=== PATIENT | male | born 1965 | race Caucasian/White ===

== ENCOUNTER 2022-10-27 06:09 | Observation (INO) ==
--- NOTE | 2022-09-07 10:32 | PAT Medication Instructions ---
Medication Instructions Date of Service September 07, 2022 Home Medications esomeprazole magnesium 20 mg capsule,delayed release 20 mg PO QPM magnesium 1 tab PO HS multivitamin 1 tab PO QAM DO NOT take the morning of surgery multivitamin 1 tab PO QAM Take evening before surgery esomeprazole magnesium 20 mg capsule,delayed release 20 mg PO QPM magnesium 1 tab PO HS Other Notes If you have any questions please call us at [phone] or [phone] or [phone] or [phone]
--- NOTE | 2022-09-14 13:42 | Anesthesiology Consultation ---
Date of Service September 14, 2022 Assessment & Plan (1) Encounter for pre-operative examination: - COVID screening: Per assessment on 09/14: No known COVID-19 positive contacts or current COVID-19 related symptoms. Travel screen- travels back and forth to [place] for work. Patient vaccinated. At surgeon discretion if preop Covid testing being done. - ETOH use: Patient reports 4-5 beers/night. No morning ETOH use - PCP visit (09/13/22): Aware of upcoming cervical surgery. "Hypertension - New Dx (09/14/22)- Not at goal. Discussed with patient the causes, predisposing risks, types, symptoms, and treatment of hypertension. Start Losartan as prescribed. May need a second agent. Educated patient on the benefits of 40 min. of aerobic exercise 4-5 days per week, low fat diet, weight reduction. Continue other conservative measures in efforts to decrease blood pressures to include: Low- sodium diet, NSAID avoidance, etc.. Continue to follow labs. Notify office if BP routinely >140/90. Discussed red flags of different kinds of cardiovascular events. Call or return to the office as needed with new or worsening symptoms. Patient in agreement with above plan.. BP 162/92" > Pt scheduled for PCP f/u visit for HTN management. Awaiting PCP visit ([facility], appt 10/05). Chart Review Chart Review: Patient seen in Pre Admission Testing Teaching & Discussion Pre-Anesthesia Teaching/Discussion Notes: Instructed NPO after midnight before surgery,except medications with 15 cc of water. Medication instructions provided according to the PAT guidelines. History Surgery Operation Date: 10/27/22 07:45 Proposed Procedures p C5-C7 Anterior Cervical Discectomy and Fusion, Spinal Cord Monitoring - Henry Washington DO Height/Weight Height: 5 ft 8.5 in Weight: 80.2 kg Allergies Allergy/AdvReac Type Severity Reaction Status Date / Time No Known Allergies Allergy Verified 09/13/22 13:51 Medications Home Medications Medication Instructions Recorded Confirmed Last Taken esomeprazole magnesium 20 mg 20 mg PO QPM 09/07/22 09/13/22 Unknown capsule,delayed release magnesium 1 tab PO HS 09/07/22 09/13/22 Unknown multivitamin 1 tab PO QAM 09/07/22 09/13/22 Unknown losartan 50 mg tablet 50 mg PO DAILY #30 tabs 09/13/22 09/13/22 Unknown Past Medical History Medical History Cervical radiculopathy Cervical spinal stenosis Degeneration of intervertebral disc of cervical region GERD (gastroesophageal reflux disease) OTC Nexium History of COVID-19 12/2021 (home test)- sore throat, runny nose > resolved Hx of headache R/t neck issues per patient Hypertension Exercise / Class Metabolic Activity II 4-5 Yardwork/Stairs/Walk up hill (one FS (no CP, no SOB)) Past Family History Family History Other Hypertension Myocardial infarction Stroke Denies family history of Ovarian cancer Prostate cancer Breast cancer Colorectal cancer Past Surgical History Surgical History Hx of anterior cruciate ligament tear reconstruction LEFT KNEE X2 Hx of shoulder surgery RIGHT- BANKHARDT REPAIR Past Anesthesia History No Hx of Anesthesia Complications and No Family Hx of Anesthesia Complications History of PONV No Hx of PONV and No Hx of Motion Sickness Social History Smoking Status: Never smoker Do You Dip or Chew Tobacco: Yes (HX-QUIT OVER 20 YEARS AGO; ADVISED) Hx Alcohol Use: Yes Alcohol type: beer alcohol intake frequency: 3 or more drinks per day (4-5 beers/night (no morning ETOH use)) Hx Substance Use: No substance use type: does not use Review of Systems Patient denies chest pain, shortness of breath, dyspnea on exertion, fever, chills, cough, wheezing, palpitations. Physical Exam Vital Signs VITALS BP 175/88 > manual recheck 154/84 (per patient, BPs earlier today were 132/80s, 137/90, today was first day of starting losartan) P 67 TEMP 98.0 SP02 99%RA RESP 16 PHYSICAL Full cervical extension range of motion. Full TMJ range of motion. TMD 3 finger breaths Mallampati Score 1 Dentition: missing molar Lungs: clear throughout to auscultation Cardiac: regular rate and rhythm, no murmurs noted Spine: normal Carotid arteries: negative bruit Extremities: no LE edema Lab Results Anesthesia Preop Results Results Anesthesia Widget: WBC 7.92 K/ul (4.8-10.8) 09/14/22 Hgb 16.3 g/dl (14.0-18.0) 09/14/22 Hct 44.6 % (42.0-52.0) 09/14/22 Plt 214 K/uL (130-400) 09/14/22 Na 138 mmol/L (136-145) 09/14/22 K 4.2 mmol/L (3.5-5.1) 09/14/22 Cl 103 mmol/L (98-107) 09/14/22 CO2 29 mmol/L (21-32) 09/14/22 BUN 13 mg/dl (6-23) 09/14/22 Creat 0.96 mg/dl (0.6-1.4) 09/14/22 Glucose Level 98 mg/dl (70-99(Fasting)) 09/14/22 PT 11.9 Seconds (9.0-12.0) 09/14/22 PTT 28.5 Seconds (21.0-31.0) 09/14/22 INR 1.1 (0.9-1.1) 09/14/22 Urine Color Yellow 09/14/22 Urine Appearance Clear (Clear) 09/14/22 Urine pH 7.0 (4.5-7.5) 09/14/22 Urine Specific [place] 1.007 (1.000-1.030) 09/14/22 Urine Protein Negative (Negative) 09/14/22 Urine Glucose (UA) Negative (Negative) 09/14/22 Urine Ketones Negative (Negative) 09/14/22 Urine Blood Negative (Negative) 09/14/22 Urine Nitrite Negative (Negative) 09/14/22 Urine Bilirubin Negative (Negative) 09/14/22 Urine Urobilinogen Negative (Negative) 09/14/22 Urine Leukocyte Esterase Negative (Negative) 09/14/22 Blood Type B Positive 09/14/22 Antibody Screen NEGATIVE 09/14/22 Testing Electrocardiogram Date: 09/14/22 NSR at 71bpm. Chest X-Ray Date: 09/14/22 FINDINGS: PA and lateral chest radiographs are obtained. No prior studies are available for comparison at the time of dictation. The cardiomediastinal silhouette is unremarkable. The lungs and pleural spaces are clear. There is no pneumothorax. The bony thorax appears intact. Degenerative change is noted in the thoracic spine. Cholecystectomy clips are present in the upper abdomen. IMPRESSION: No active disease in the chest. COVID-19 Risk Screen Screening Information COVID-19 Screen Date: 09/14/22 Exposure 21 Days Family/Household +COVID Last 21 Days: No Exposure 10 Days Any COVID Exposure Last 10 Days: No Symptoms Last 10 Days Experienced COVID Sx Last 10 Days: No + COVID 0-90 Days COVID + in Last 0-90 Days: No
[~2022-10-27 06:09] MED LIST: ACETAMINOPHEN 500 MG TAB PO SCH; CeleBREX 200 MG CAP PO SCH; GABAPENTIN 300 MG CAP PO SCH; LR 15ML/HR IV SCH; ceFAZolin 2000MG 2,000 MG/15 ML SYR IV SCH
[2022-10-27] MEDS ORDERED: FAMOTIDINE/PF 20 MG/2 ML VIAL IV ONE (06:47)
[2022-10-27] MEDS ORDERED: MIDAZOLAM HCL 1 MG/ML 2ML VIAL ONE (06:55)
[2022-10-27] MEDS ORDERED: fentaNYL citrate PF 100 MCG/2 ML VIAL ONE (06:55)
[2022-10-27] MEDS ORDERED: LIDOCAINE 2% 2 ML VIAL/AMP(20MG/ML) INFIL ONE (06:56)
[2022-10-27] MEDS ORDERED: LARYING-O-JET KIT (LTA) ONE (06:56)
[2022-10-27] MEDS ORDERED: ONDANSETRON INJ 2 MG/ML 2 ML VIAL ONE (06:58)
[2022-10-27] MEDS ORDERED: DEXAMETHASONE SOD INJ 4 MG/ML VIAL ONE (06:58)
[2022-10-27] MEDS ORDERED: HYDROmorphone INJ 2 MG/ML SYR/VIAL ONE (06:58)
[2022-10-27] MEDS ORDERED: METOCLOPRAMIDE HCL INJ 5 MG/ML 2 ML VIAL ONE (06:58)
[2022-10-27] MEDS ORDERED: ceFAZolin 330 MG/ML 1 GM VIAL ONE (07:13)
[2022-10-27] MEDS ORDERED: ONDANSETRON INJ 2 MG/ML 2 ML VIAL IV PRN ×2 (07:22→11:19)
[2022-10-27] MEDS ORDERED: ATROPINE SULFATE 0.1 MG/ML 10ML SYR IV PRN (07:22)
[2022-10-27] MEDS ORDERED: HYDROmorphone INJ 2 MG/ML SYR/VIAL IV PRN (07:22)
[2022-10-27] MEDS ORDERED: ePHEDrine sulfate 50 MG/ML AMP IV PRN (07:22)
[2022-10-27] MEDS ORDERED: PROMETHAZINE HCL 6.25 MG in SODIUM CHLORIDE 0.9% 50 ML IV PRN (07:22)
--- NOTE | 2022-10-27 07:39 | History & Physical Bridge Note ---
Date of Service October 27, 2022 History & Physical Bridge Note I have examined the patient, reviewed the History & Physical and in the interval since the performance of the History & Physical I have noted the following changes of clinical significance: no changes noted
--- NOTE | 2022-10-27 07:41 | History & Physical Report ---
Date of Service October 27, 2022 Assessment & Plan (1) Cervical radiculopathy: Plan: C5-C7 anterior cervical discectomy and fusion History of Present Illness Chief Complaint: Neck and arm pain Primary Care Provider: GARRETT Richardson This is a 56-year-old male presents with chronic persistent neck and arm pain after failing course of nonoperative care is here for surgical invention. Allergies Allergy/AdvReac Type Severity Reaction Status Date / Time No Known Allergies Allergy Verified 10/27/22 06:22 Home Medications Medication Instructions Recorded Confirmed Type esomeprazole magnesium 20 mg 20 mg PO QPM 09/07/22 10/27/22 History capsule,delayed release magnesium 1 tab PO HS 09/07/22 10/27/22 History multivitamin 1 tab PO QAM 09/07/22 10/27/22 History losartan 50 mg tablet 25 mg PO BID 10/27/22 10/27/22 History Past Med/Surg History Medical History Cervical radiculopathy Cervical spinal stenosis Degeneration of intervertebral disc of cervical region GERD (gastroesophageal reflux disease) OTC Nexium History of COVID-19 12/2021 (home test)- sore throat, runny nose > resolved Hx of headache R/t neck issues per patient Hypertension Surgical History Hx of anterior cruciate ligament tear reconstruction LEFT KNEE X2 Hx of shoulder surgery RIGHT- BANKHARDT REPAIR Family History Other Hypertension Myocardial infarction Stroke Denies family history of Ovarian cancer Prostate cancer Breast cancer Colorectal cancer Social History Smoking Status: Never smoker Second Hand Exposure: No; Do You Dip or Chew Tobacco: Yes (HX-QUIT OVER 20 YEARS AGO; ADVISED); Tobacco Cessation Education Requested by Patient: No Hx Alcohol Use: Yes Alcohol type: beer Alcohol Intake Frequency: 4 or More x per/Week Alcohol Intake Frequency Comment: 2-4/day Hx Substance Use: No Preferred Language: Azerbaijani Communication Ability: Effective Visual Impairment: No Limitations Hearing Ability: Normal Analyst Business Analysis Required: No Beliefs That Will Affect Care: None Current Living Situation: Spouse Current Living Situation Comment: LIVES WITH EVERY OTHER MONTH, WORKS IN [employer] current occupational status: employed How many Children do You have: 2 How many Children do You have Comment: One child Other Information That Helps Us Care for You: No Feels Safe at Home: Yes Safety Concerns: Feels Safe At This Time Childhood Exposure to Second-Hand Smoke: Yes Diet: regular Diet Comment: Regular caffeine: Yes (1 cup coffee/day) during the past year weight has: remained stable Dental Care, Regularly: No Physical Activity Frequency: Daily Seatbelt Use: always Sunscreen Use: Yes Assistive Devices: Contacts Assistive Devices Comment: CONTACT IN RT EYE ONLY Physical Exam Physical Exam: Patient is alert and oriented Heart regular rhythm Lungs clear Results & Data Results & Data Vital Signs (Past 12 Hours) Vital Signs Temp Pulse Resp BP Pulse Ox O2 Del Method 10/27/22 06:25 36.9 C 98 H 20 168/104 H 99 Room Air
[2022-10-27] MEDS ORDERED: PHENYLEPHRINE 100MCG/ML 5ML SYR ONE (08:20)
[2022-10-27] MEDS ORDERED: ROCURONIUM BROMIDE 10 MG/ML 5 ML VIAL IV ONE (08:24)
[2022-10-27] MEDS ORDERED: PHENYLEPHRINE HCL 10 MG/ML VIAL ONE (08:25)
[2022-10-27] MEDS ORDERED: SUGAMMADEX SODIUM 200 MG/2 ML VIAL IV ONE (09:00)
--- NOTE | 2022-10-27 09:23 | Operative Report ---
Post Operative Report Pre & Post Diagnosis Operation Date: 10/27/22 07:45 Pre-Op Diagnosis: Cervical radiculopathy Post-Op Diagnosis: Cervical radiculopathy I identified the patient and participated in the time-out.: Yes Procedure Operation Date: 10/27/22 07:45 Actual Procedures #1 anterior cervical discectomy with bilateral foraminotomies C5-C6 C6-C7. #2 anterior cervical arthrodesis C5-C6 C6-C7. #3 placement of Spira 7 mm cage at C5-C6 and C6-C7 both filled with I factor. #4 application of K2 M plate and screws from C5-C7. Surgeon Henry Washington, DO [employer] Margaret Roblero Estimated Blood Loss 10 Findings Consistent with Post-Op Diagnosis Specimens none Indications This is a 56-year-old male who presents above-mentioned diagnosis after failing extensive course of nonoperative care is here for surgical intervention. Description of Procedure Patient was met with identified informed consent obtained. Patient was then taken to the operative suite underwent patient placed in spine position jacks table with head Figueredo head inspector. All bony prominences well-padded eyes inspected to ensure no external pressure placed upon the. This point the anterior cervical spine was prepped and draped in a sterile fashion. With assistance of fluoroscopy identified the C6 vertebral body and a transverse incision was placed along the right anterior aspect of the cervical spine. Blunt dissection with assistance of bipolar Cardizem performed down to and exposing the anterior cervical spine from C5-C7. Self-retaining retractors placed. Informed complete discectomy of C5-C6 out to the uncovertebral joints bilaterally. [place] distracting pins were utilized to assist in visualization. Removed all posterior fibers and neural ligament bilateral foraminotomies performed. Endplates burred to subcortically bone and a 7 mm Spira cage with I factor tapped in position. Then proceeded to C6-C7. Again complete discectomy performed out to the uncovertebral joints bilaterally. [place] distracting pins again utilized. Removed all posterior annular fibers longitudinal ligament bilateral foraminotomies performed. Endplates burred to subcortical mean bone and again a 7 mm Spira cage filled I factor tapped in position. Distracting apparatus was removed all anterior osteophytes burred to a smooth cortical surface and a K2 M plate and screws applied with the assistance of fluoroscopy. The incision was then copiously irrigated explored to ensure no damage to surrounding structures or remaining bleeding. 10 round STEVEN drain inserted. The incision was then closed with 2 Vicryl in the fascia and 4 Monocryl for final skin closure. Steri-Strips sterile dressing placed. Patient awakened taken to PACU in stable condition. Please note spinal cord monitoring visualized at the procedure no changes noted. Lastly Margaret Roblero was present at the entire surgery and while the patient positioning complex portion of the surgery and final skin closure. I attest to the content of the Intraoperative Record and any orders documented therein. Any exceptions are noted below.
--- NOTE | 2022-10-27 09:36 | Fluoroscopy Report ---
FL cervical 2-3V CLINICAL HISTORY: ACDF [id number] neck pain COMPARISON STUDY: 10/02/2021 FLUOROSCOPY TIME: 9.1 seconds FLUOROSCOPY IMAGES: 2 EXPOSURE DOSE: 0.90 mGy Air Kerma FINDINGS: Anterior plate and screw fusion hardware is noted at what appears to be the C5-C7 levels wi th discectomy. The visualized hardware appears intact. Endotracheal tube. Radiopaque surgical sponge projects over the anterior operative bed. Multilevel degenerative changes of the cervical spine redem onstrated. Surgical drainage catheter. IMPRESSION: Fluoroscopic assistance as above. ACT 112: Negative or not required by law. Electronically signed by: Prudencio Vinson M.D. 10/27/2022 9:35 AM
[2022-10-27] MEDS: fentaNYL citrate PF 100 MCG/2 ML VIAL IV PRN ×3 (09:38→10:52)
[2022-10-27] MEDS ORDERED: FLOSEAL HEMOSTATIC MATRIX 10ML TOP ONE (10:43)
[2022-10-27] MEDS ORDERED: LORazepam 0.5 MG TAB PO PRN (11:19)
[2022-10-27] MEDS ORDERED: ALUMINUM/MAGNESIUM SUSP 30 ML UDC PO PRN (11:19)
[2022-10-27] MEDS ORDERED: ONDANSETRON 4 MG OD TAB PO PRN (11:19)
[2022-10-27] MEDS ORDERED: DO NOT ADMINISTER PNEUMOCOCCAL VACCINE PRN (11:19)
[2022-10-27] MEDS ORDERED: MAGNESIUM HYDROXIDE SUSP 30 ML UDC PO PRN (11:19)
[2022-10-27] MEDS ORDERED: LORazepam 2 MG/1 ML VIAL IV PRN (11:19)
[2022-10-27] MEDS ORDERED: HYDROmorphone INJ 1 MG/ML SYRINGE IV PRN (11:19)
[2022-10-27] MEDS ORDERED: NALOXONE HCL 0.4 MG/1 ML VIAL/CARP IV PRN (11:19)
[2022-10-27] MEDS ORDERED: FAMOTIDINE 20 MG TAB PO PRN (11:19)
[2022-10-27] MEDS ORDERED: ACETAMINOPHEN 1,000 MG/100 ML VIAL IV PRN (11:19)
[2022-10-27] MEDS ORDERED: RACEPINEPHRINE 2.25% NEBU SOLN 0.5 ML VIAL INH PRN (11:19)
[2022-10-27] MEDS ORDERED: diphenhydrAMINE Capsule 25 MG CAP PO PRN (11:19)
[2022-10-27] MEDS ORDERED: dexAMETHasone 8 MG in SYRINGE 0 ML IV PRN (11:19)
[2022-10-27] MEDS ORDERED: METOCLOPRAMIDE HCL INJ 5 MG/ML 2 ML VIAL IV PRN (11:19)
[2022-10-27] MEDS ORDERED: SOD PHOSPHATE/SOD BIPHOSPHATE ENEMA 132 ML BTL PR PRN (11:19)
[2022-10-27] MEDS ORDERED: ACETAMINOPHEN 500 MG TAB PO PRN (11:19)
[2022-10-27] MEDS ORDERED: bisacodyL 10 MG SUPP PR PRN (11:19)
[2022-10-27] MEDS ORDERED: PROMETHAZINE HCL 12.5 MG in SODIUM CHLORIDE 0.9% 50 ML IV PRN (11:19)
[2022-10-27] MEDS ORDERED: DO NOT ADMINISTER FLU VACCINE PRN (11:19)
[2022-10-27] MEDS ORDERED: hydrOXYzine HCl 25 MG TAB PO PRN (11:19)
--- NOTE | 2022-10-27 11:26 | Anesthesiology Progress Note ---
Date of Service October 27, 2022 Anesthesia Post Procedure Vital Signs Vital Signs: Temp Pulse Pulse Resp BP Pulse Ox O2 Del Method 10/27/22 11:19 36.8 C 104 H 18 172/96 H 96 Nasal Cannula 10/27/22 11:05 101 H 20 149/91 H 95 Nasal Cannula 10/27/22 10:55 99 H 18 157/101 H 95 Nasal Cannula 10/27/22 10:45 98 H 15 164/97 H 95 Nasal Cannula 10/27/22 10:35 36.7 C 97 H 15 155/102 H 94 Nasal Cannula 10/27/22 10:15 93 H 16 147/105 H 95 Nasal Cannula 10/27/22 10:05 93 H 17 160/103 H 92 Room Air 10/27/22 09:55 90 17 152/100 H 99 Oxymask 10/27/22 09:45 90 12 161/108 H 99 Oxymask 10/27/22 09:35 94 H 13 163/99 H 100 Oxymask 10/27/22 09:29 36.2 C L 98 H 12 170/91 H 99 Oxymask 10/27/22 06:25 36.9 C 98 H 20 168/104 H 99 Room Air O2 Flow Rate 10/27/22 11:19 2 10/27/22 11:05 2 10/27/22 10:55 2 10/27/22 10:45 2 10/27/22 10:35 2 10/27/22 10:15 2 10/27/22 10:05 10/27/22 09:55 2 10/27/22 09:45 4 10/27/22 09:35 6 10/27/22 09:29 6 10/27/22 06:25 Pain Intensity Neck: Pain Intensity: 6 Medial Neck: Pain Intensity: 4 Transfer of Care Handoff Completed per policy Notes Mental Status: alert / awake / arousable Patient Amnestic to Procedure: Yes Nausea / Vomiting: adequately controlled Pain: adequately controlled Airway Patency, RR, SpO2: stable & adequate BP & HR: stable & adequate Hydration State: stable & adequate Anesthetic Complications: no major complications apparent
[2022-10-27] MEDS: LACTATED RINGER'S 1,000 ML IV SCH ×2 (11:57→16:18)
--- NOTE | 2022-10-27 12:02 | Hospitalist Consultation ---
Date of Consultation October 27, 2022 Assessment & Plan (1) S/P cervical spinal fusion: -Currently stable -Pain control, perioperative abx, IV fluids, and DVT PPX per the primary team -Ordering am CBC, BMP, and mag, we will follow -Agree with stress ulcer PPX ordered by the primary team -No focal neuro defects post procedure, continue to monitor -Thank you for allowing us to participate in the care of this patient, please reach out with any questions or concerns -Medicine will continue to follow (2) Alcohol use: -Drinks 3-4 beers nightly due to chronic neck pain and headaches -No previous hx of alcohol withdrawal when he doesn't drink -Last drink was yesterday around 10 pm, no current withdrawal symptoms -Will start AWSS at risk protocol to monitor for sings of withdrawal -Will start the patient on daily thiamine and folic acid -Patient expressed the intention on cutting back on his drinking if his cervical symptoms remain improved -Continue to stress the importance of cessation (3) Hypertension: -BP currently 170/95, patient is asymptomatic -Will give his am dose of losartan now -Continue BID losartan (4) GERD (gastroesophageal reflux disease): -Agree with prn famotidine and scheduled pantoprazole Plan The patient was discussed with Dr. Keita at the time of the admission Supervising Physician Co-Signing Physician Notes I personally saw and examined the patient. I verified all peña points and agree with Geo Sierra PA-C with the following exceptions and/or additions: 56 year old male POD#0 ACDF. Significant improvement of pre-operative upper extremity symptoms and headache already post operatively. BP improved from earlier with giving AM losartan. O/E HS RRR, no murmurs, Chest CTAB, Abdo SNT, Charlton J collar in place A/P No change ot plan above. History of Present Illness Reason for Consultation: Post-op medical management Requesting Physician: Henry Washington DO Attending Physician: Dr. Cezar Keita History of Present Illness Laci is a 56 year old male with a PMH significant for HTN, GERD, daily alcohol use, and cervical spinal stenosis who presented to the [facility] on 10/27/22 for scheduled C5-C7 Anterior Cervical Discectomy and Fusion with Dr. Washington. Review of the patient's vitals since arrival show him to be hypertensive at 167/101, tachycardic at 101, and stable on 2L NC post-op. Per the operative report, EBL was listed at 10 cc, intraoperative complications and anesthesia type were not listed. At the time of the exam the patient was sitting in bed in no acute distress with his sitting bedside. He was stable on RA at the time of the exam. He states he is feeling "great" after the procedure. This is the first time he has been headache free in years due to neck pain. His last dose of Losartan was last night, he did not have his am dose today. He currently drinks 3-4 beers per night, this was to help with his neck pain and headaches. He denies a previous history of alcohol withdrawal when he doesn't drink. His last drink was last night around 10 pm. He states that she should be able to cut back on his drinking if his symptoms remain improved. He denies recent fever, chills, headache, changes in vision, hearing, taste, and smell, paresthesias, chest pain, SOB, abd pain, nausea, vomiting, diarrhea, dysuria, hematuria, melena, LE swelling, and recent trauma. Please refer to Dr. Keita's attestation for any changes to the treatment plan Allergies Allergy/AdvReac Type Severity Reaction Status Date / Time No Known Allergies Allergy Verified 10/27/22 06:22 Home Medications Medication Instructions Recorded Confirmed Type esomeprazole magnesium 20 mg 20 mg PO QPM 09/07/22 10/27/22 History capsule,delayed release magnesium 1 tab PO HS 09/07/22 10/27/22 History multivitamin 1 tab PO QAM 09/07/22 10/27/22 History losartan 50 mg tablet 25 mg PO BID 10/27/22 10/27/22 History oxycodone 5 mg tablet 5 mg PO Q6H PRN pain #30 tabs 10/27/22 Rx tramadol 50 mg tablet 50 mg PO Q6H PRN pain, moderate 10/27/22 Rx #30 tabs Patient History Medical History Cervical radiculopathy Cervical spinal stenosis Degeneration of intervertebral disc of cervical region GERD (gastroesophageal reflux disease) OTC Nexium History of COVID-19 12/2021 (home test)- sore throat, runny nose > resolved Hx of headache R/t neck issues per patient Hypertension Surgical History Hx of anterior cruciate ligament tear reconstruction LEFT KNEE X2 Hx of shoulder surgery RIGHT- BANKHARDT REPAIR Family History Other Hypertension Myocardial infarction Stroke Denies family history of Ovarian cancer Prostate cancer Breast cancer Colorectal cancer Social History Smoking Status: Never smoker Second Hand Exposure: No; Do You Dip or Chew Tobacco: Yes (HX-QUIT OVER 20 YEARS AGO; ADVISED); Tobacco Cessation Education Requested by Patient: No Hx Alcohol Use: Yes Alcohol type: beer Alcohol Intake Frequency: 4 or More x per/Week Alcohol Intake Frequency Comment: 2-4/day Hx Substance Use: No Preferred Language: Polish Communication Ability: Effective Visual Impairment: No Limitations Hearing Ability: Normal Medical Superintendent Required: No Beliefs That Will Affect Care: None Current Living Situation: Spouse Current Living Situation Comment: LIVES WITH EVERY OTHER MONTH, WORKS IN [place] current occupational status: employed How many Children do You have: 2 How many Children do You have Comment: One child Other Information That Helps Us Care for You: No Feels Safe at Home: Yes Safety Concerns: Feels Safe At This Time Childhood Exposure to Second-Hand Smoke: Yes Diet: regular Diet Comment: Regular caffeine: Yes (1 cup coffee/day) during the past year weight has: remained stable Dental Care, Regularly: No Physical Activity Frequency: Daily Seatbelt Use: always Sunscreen Use: Yes Assistive Devices: Contacts Assistive Devices Comment: CONTACT IN RT EYE ONLY Physical Exam Physical Exam: Physical Exam: General: In no acute distress, stated age, well-nourished, good hygiene HEENT: Normocephalic, currently with c-collar in place, no scleral icterus, pupils around round, symmetrical, and reactive to light, moist mucus membranes, trachea midline, no thyromegaly Chest/Pulm: No respiratory distress, symmetrical chest expansion, clear breath sounds throughout Cardiac: RRR, no murmurs noted Abdomen: Negative for ascites and bruising, normoactive bowel sounds, soft, non-tender to palpation throughout Musculoskeletal: Bandage over the surgical site on the anterior neck is intact and without signs of drainage, Symmetrical and without signs of acute tra jatinder, upper and lower extremities with full ROM, no atrophy, spasticity, or flaccidity Extremities: Radial, dorsalis pedis, and posterior tibial pulses are intact and symmetrical, no edema noted in the BL LE's Skin: Warm, dry, no rashes , lesions, or scars noted Neuro: Alert and oriented to person, place, month, year, and president, no focal defects, CN II-XII tested and intact, no tremors noted Psych: No acute distress, calm and cooperative during the exam Results & Data Results & Data Vital Signs (Past 12 Hours) Vital Signs Temp Pulse Pulse Resp BP Pulse Ox O2 Del Method 10/27/22 11:25 103 H 18 97 Nasal Cannula 10/27/22 11:49 36.8 C 101 H 18 167/101 H 97 Nasal Cannula 10/27/22 11:19 36.8 C 104 H 18 172/96 H 96 Nasal Cannula 10/27/22 11:05 101 H 20 149/91 H 95 Nasal Cannula 10/27/22 10:55 99 H 18 157/101 H 95 Nasal Cannula 10/27/22 10:45 98 H 15 164/97 H 95 Nasal Cannula 10/27/22 10:35 36.7 C 97 H 15 155/102 H 94 Nasal Cannula 10/27/22 10:15 93 H 16 147/105 H 95 Nasal Cannula 10/27/22 10:05 93 H 17 160/103 H 92 Room Air 10/27/22 09:55 90 17 152/100 H 99 Oxymask 10/27/22 09:45 90 12 161/108 H 99 Oxymask 10/27/22 09:35 94 H 13 163/99 H 100 Oxymask 10/27/22 09:29 36.2 C L 98 H 12 170/91 H 99 Oxymask 10/27/22 06:25 36.9 C 98 H 20 168/104 H 99 Room Air O2 Flow Rate 10/27/22 11:25 2 10/27/22 11:49 2 10/27/22 11:19 2 10/27/22 11:05 2 10/27/22 10:55 2 10/27/22 10:45 2 10/27/22 10:35 2 10/27/22 10:15 2 10/27/22 10:05 10/27/22 09:55 2 10/27/22 09:45 4 10/27/22 09:35 6 10/27/22 09:29 6 10/27/22 06:25 Diagnostic Findings Cervical Spine X-Ray 10/27/22 07:45 FL cervical 2-3V CLINICAL HISTORY: ACDF [id number] neck pain COMPARISON STUDY: 10/02/2021 FLUOROSCOPY TIME: 9.1 seconds FLUOROSCOPY IMAGES: 2 EXPOSURE DOSE: 0.90 mGy Air Kerma FINDINGS: Anterior plate and screw fusion hardware is noted at what appears to be the C5-C7 levels with discectomy. The visualized hardware appears intact. Endotracheal tube. Radiopaque surgical sponge projects over the anterior operative bed. Multilevel degenerative changes of the cervical spine redemonstrated. Surgical drainage catheter. IMPRESSION: Fluoroscopic assistance as above. ACT 112: Negative or not required by law. Electronically signed by: Prudencio Vinson M.D. 10/27/2022 9:35 AM PG Care Time/CCT Total # of Minutes Spent Total Time Spent with Patient: Total time spent is greater than 50% in coordination of care (as documented) at patient's floor/unit and/or counseling patient: Coding [place] [address] IN/OBS CONSULT LVL 3,45M Patient Type Established Medical Decision Making High Complexity Diagnoses S/P cervical spinal fusion Z98.1 Alcohol use Z78.9 Hypertension I10 GERD (gastroesophageal reflux disease) K21.9
[2022-10-27] MEDS ORDERED: LORazepam 1 MG TAB PO PRN (12:14)
[2022-10-27] MEDS ORDERED: LOSARTAN POTASSIUM 25 MG TAB PO STA (12:30)
[2022-10-27] MEDS: THIAMINE HCL 100 MG TAB PO SCH (12:53)
[2022-10-27] MEDS: FOLIC ACID 1 MG in SYRINGE 9.8 ML IV SCH (13:01)
[2022-10-27] MEDS: oxyCODONE HCL IR 5 MG TAB (IMMEDIATE RELEASE) PO PRN ×2 (13:11→17:53)
[2022-10-27] MEDS: ceFAZolin 2000MG 2,000 MG/15 ML SYR IV SCH (15:26)
[2022-10-27] MEDS: traMADol HCL 50 MG TABLET PO PRN (20:12)
[2022-10-27] MEDS: LOSARTAN POTASSIUM 25 MG TAB PO SCH (20:27)
[2022-10-27] MEDS ORDERED: NON-FORMULARY MEDICATION (Magnesium Tablet) PO SCH (21:00)
[2022-10-27] MEDS ORDERED: DOCUSATE SODIUM/SENNA 50/8.6MG TAB PO SCH (21:00)
[2022-10-27] MEDS ORDERED: PANTOprazole 40 MG TAB PO SCH (21:00)
[2022-10-27] MEDS: HYDROmorphone INJ 0.5 MG/0.5 ML SYR IV PRN (22:29)
[2022-10-28] MEDS: ceFAZolin 2000MG 2,000 MG/15 ML SYR IV SCH (00:19)
[2022-10-28] MEDS: HYDROmorphone INJ 0.5 MG/0.5 ML SYR IV PRN (02:29)
[2022-10-28] MEDS: oxyCODONE HCL IR 5 MG TAB (IMMEDIATE RELEASE) PO PRN ×2 (04:55→11:35)
[2022-10-28] MEDS ORDERED: POLYETHYLENE (MIRALAX) 17 GM PACK PO SCH (06:00)
[2022-10-28 06:33] LABS: Basophils # (auto) 0.01 K/uL (0-0.2); Basophils % (auto) 0.1 %; Eosinophils # (auto) 0.02 K/uL (0-0.50); Eosinophils % (auto) 0.2 %; Hematocrit (blood only) 37.2 % (42.0-52.0); Hemoglobin 13.9 g/dl (14.0-18.0); Immature Granulocytes # (auto) 0.07 K/uL (0.01-0.20); Immature Granulocytes % (auto) 0.6 %; Lymphocytes # (auto) 1.03 K/uL (1.2-3.4); Lymphocytes % (auto) 8.5 %; Mean Corpuscular Hemoglobin 32.6 pg (25.0-34.0); Mean Corpuscular Hgb Conc 37.4 g/dL (32.0-36.0); Mean Corpuscular Volume 87.1 fL (80.0-100.0); Mean Platelet Volume 11.2 fL (9.4-12.4); Monocytes # (auto) 1.04 K/uL (0.11-0.59); Monocytes % (auto) 8.6 %; Neutrophils # (auto) 9.97 K/uL (1.40-6.50); Platelet Count 199 K/uL (130-400); RDW Coefficient of Variation 11.2 % (11.5-14.5); RDW Standard Deviation 35.4 fL (36.4-46.3); Red Blood Count 4.27 M/uL (4.70-6.10); White Blood Count 12.14 K/ul (4.8-10.8)
[2022-10-28 06:42] LABS: BUN Creatinine Ratio 13.7 (10-20); Calcium 9.1 mg/dl (8.6-10.3); Est GFR (African American) 102.6 ml/min; Est GFR (Non-African American) 88.5 ml/min; Magnesium 2.1 mg/dl (1.7-2.4); Potassium 3.7 mmol/L (3.5-5.1)
[2022-10-28] MEDS: traMADol HCL 50 MG TABLET PO PRN (07:35)
--- NOTE | 2022-10-28 08:24 | Discharge Summary ---
Date of Service October 28, 2022 Admission HPI Per Admitting Provider This is a 56-year-old male presents with chronic persistent neck and arm pain after failing course of nonoperative care is here for surgical invention. Principal Diagnosis Cervical spinal stenosis with radiculopathy Discharge Data Allergies Allergy/AdvReac Type Severity Reaction Status Date / Time No Known Allergies Allergy Verified 10/27/22 06:22 Consultations 10/27/22 11:19 Consult Hospitalist Routine Procedures Performed Operation Date: 10/27/22 07:45 Actual Procedures p C5-C7 Anterior Cervical Discectomy and Fusion, Spinal Cord Monitoring(Not Applicable) - Henry Washington DO Ordered Studies 10/27/22 07:45 FL cervical 2-3V Routine Hospital Course (1) Cervical radiculopathy: Patient underwent anterior cervical discectomy and fusion tolerated this well was taken to orthopedic for postoperative. Postop day 1 is up and ambulating. Swallowing well. No hoarseness. STEVEN drain decreasing appropriately. Excellent strength testing. Pain well controlled. Subsequent discharge home. Discharge orders instructions found in chart for further review. Total Time Total Time Spent Total Time Spent (In Minutes): 20 minutes Discharge Plan Discharge Items Patient Disposition: Home - Self-Care Reason For Visit: Cervical Region Spinal Stenosis Discharge Diagnosis: Cervical spinal stenosis with radiculopathy Activity: As commented below Non-emergency contact: Primary Care Provider Call non-emergency contact if: you have any medication questions Follow-up/Referrals: Jim Lerma CRNP [Primary Care Provider] - Diet: Regular Addtl Attending Provider Instructions: ACTIVITY RECOMMENDATIONS: SELF CARE INSTRUCTIONS AFTER CERVICAL FUSIONS 1. No smoking. Smoking drastically decreases the chance of a solid fusion. 2. No bending, lifting more than 5 pounds, or twisting (roll like a log when turning in bed). 3. You may shower 3 days after surgery. Thoroughly dry wound. Do not soak in the tub. 4. Cervical collar: Must be worn at all times including sleeping. You may remove the brace only to bath, eat and if you are sitting in a recliner. 5. Please walk as much as you can for exercise. Gradually increase the distance that you walk as your endurance increases. SPECIAL CARE INSTRUCTIONS: VERY IMPORTANT TO READ AND REVIEW A. Do not take any anti-inflammatory medications (i.e. Indocin, Advil, Aspirin, Naprosyn, Aleve, Motrin, etc.) as these may inhibit the chance of a solid fusion. Tylenol is okay to take. B. Your surgical incision has been closed with a cosmetic suture under the skin that will dissolve in about 6 weeks. In 14 days, you can use a pair of clean scissors and cut the suture that is left outside of the skin at the ends of your incision. C. Complications are uncommon, but please contact us if you have any signs or symptoms of: 1. wound infection (fever higher than 102.5 degrees F, redness, separation of wound, drainage, or increasing pain from the incision) 2. blood clots in legs (pain, swelling, redness and warmth in legs) 3. urinary tract infection (fever higher than 102.5 degrees, burning upon urination or increased frequency of urination) 4. nerve problems (inability to walk on your toes or heels, numbness, loss of bowel or bladder control) 5. any other symptoms that concern you. D. Please call the office at if you have any concerns or questions about your operation or recovery. MANAGING PAIN AFTER SPINAL SURGERY 1. Narcotic medication is intended for short-term use and will be provided for surgical pain. Surgical pain usually lasts for a period of 4-6 weeks. Narcotic medication includes Percocet, Vicodin, Darvocet, Tylenol #3 or Lortab. 2. Longer-term pain is more appropriately treated with non-narcotic medication such as Tylenol ES. 3. Muscle spasm is not appropriately treated with narcotics. Muscle relaxers such as Soma, Flexeril or Skelaxin can be used along with Tylenol ES. 4. Remember that we all live with some "aches and pains". This is not unusual or uncommon after an injury or as we get older. 5. We will provide appropriate medication within the normal guidelines of their prescribed use. We will also be very cautious and aware of potential abuse and extended duration of patients' medication needs. 6. Please allow 2-3 days to process refills. Prescriptions will not be mailed but must be picked up at the office. FOLLOW UP VISIT: Keep your scheduled follow-up appointment. Any questions, please call the office at . Pending Studies at Discharge: No Stand-Alone Forms: My [facility], Smoking Cessation Medications and DC Order Prescriptions: New oxycodone 5 mg tablet 5 mg PO Q6H PRN (Reason: pain) Qty: 30 0RF tramadol 50 mg tablet 50 mg PO Q6H PRN (Reason: pain, moderate) Qty: 30 0RF Continued multivitamin Tablet 1 tab PO QAM Patient Comments: ASHWAGANDA, TESTOFEN, VITAMIN D, B esomeprazole magnesium 20 mg Capsule,Delayed Release(Dr/Ec) 20 mg PO QPM Patient Comments: OTC MED, TAKES AFTER LUNCH magnesium Tablet 1 tab PO HS losartan 50 mg tablet 25 mg PO BID Discharge Orders: Discharge Order (Routine); Ordered 10/28/22 Ordered By: Henry Washington Admission Data Admit Date/Time: 10/27/22 09:25 Attending Provider: Henry Washington Admit Provider: Henry Washington Primary Care Provider: Jim Lerma Other Providers: Cezar Keita
[2022-10-28] MEDS: THIAMINE HCL 100 MG TAB PO SCH (08:33)
[2022-10-28] MEDS: FOLIC ACID 1 MG in SYRINGE 9.8 ML IV SCH (08:33)
[2022-10-28] MEDS: LOSARTAN POTASSIUM 25 MG TAB PO SCH (08:34)
[2022-10-28] MEDS ORDERED: dexAMETHasone 6 MG in SYRINGE 0 ML IV SCH (09:00)
[2022-10-28] MEDS ORDERED: MULTIVITAMIN TAB PO SCH (09:00)
--- NOTE | 2022-10-28 12:24 | Hospitalist Progress Note ---
Date of Service October 28, 2022 Assessment & Plan (1) S/P cervical spinal fusion: Plan: Postoperative day #1 after anterior cervical discectomy at the C5-6-7 level with instrumentation. He is stable and will be discharged to home later today per the primary service (2) Alcohol use: Plan: No history of DTs. No signs of alcohol withdrawal at this time. Supportive care. (3) Hypertension: Plan: Stable. Continue current medical management (4) GERD (gastroesophageal reflux disease): Plan: Treated with famotidine and pantoprazole Plan Home today, October 28, per primary service. He is medically stable Admission and Anticipated Discharge Date Admission Date: October 27, 2022 Subjective Alert and oriented. Vital signs are stable. Postoperative day #1 after anterior cervical discectomy at the C5-6-7 level with instrumentation. He will be discharged home later today by the primary service Review of Systems Review of Systems: Constitutional-no fever or chills ENT-no blurred vision, no double vision, no epistaxis, no sore throat Respiratory-no cough, no wheezing, no shortness of breath Cardiac-no palpitations, no chest pain, no syncope GI-no nausea, vomiting, diarrhea, melena, hematochezia -no urinary retention, no urinary incontinence, no dysuria, no hematuria Musculoskeletal-no joint pain, no muscle tenderness Skin-no bruising, no rashes, no pruritus Neuro-no isolated weakness, no paresthesia, no weakness Psych-no depression, no anxiety Physical Exam Physical Exam: General-alert and oriented x3, no fevers, no chills HEENT-head atraumatic and normocephalic, pupils equal and reactive to light, extraocular muscles intact Neck-anterior cervical spine neck incision site is clean and dry with hemostasis Chest-clear to auscultation percussion. No rales wheezing or rhonchi Cardiac-regular rate and rhythm, normal S1 and S2 Abdomen-normal bowel sounds, nontender, no hepatosplenomegaly Extremities-no cyanosis, clubbing, or edema Neuro-cranial nerves II through XII intact, motor and sensory function within normal limits, strength symmetrical , no focal deficits Psych-normal affect, normal mood Results & Data Results & Data Vital Signs (Past 12 Hours) Vital Signs Temp Pulse Resp BP BP Pulse Ox O2 Del Method 10/28/22 11:39 36.6 C 78 18 159/96 H 155/88 H 97 10/28/22 08:28 36.6 C 78 18 159/96 H 97 Room Air 10/28/22 06:56 77 16 96 Room Air 10/28/22 06:30 36.5 C 80 16 141/84 H 92 Room Air 10/28/22 04:30 36.4 C L 88 16 155/87 H 96 Room Air 10/28/22 02:15 36.4 C L 79 16 148/85 H 95 Room Air 10/28/22 02:37 75 16 95 Room Air Laboratory Results 10/28/22 05:40 10/28/22 05:40 PG Care Time/CCT Total # of Minutes Spent Total Time Spent with Patient: Total time spent is greater than 50% in coordination of care (as documented) at patient's floor/unit and/or counseling patient: Coding Level of Care Code 83963 SUB INP/OBS CARE 2/35MIN Diagnoses S/P cervical spinal fusion Z98.1 Alcohol use Z78.9 Hypertension I10 GERD (gastroesophageal reflux disease) K21.9
== END 2022-10-28 12:09 | disposition home or self-care (01) ==
LOC: 3E 06:09 → ASU 06:09